=== PATIENT | male | born 1950 | race Asian ===

== ENCOUNTER 2022-01-12 17:43 | Emergency (ER) | payer MEDICARE, OTHER ==
[~2022-01-12] VITALS: Ht 160 cm; Wt 59.0 kg
[~2022-01-12 17:43] MED LIST: ALLO-45 PO; AMLO-257 PO; HYDR10TA31 PO; HYDR25TA2 PO; LISI-894 PO
[2022-01-12] MEDS ORDERED: METO-558 PO (17:53)
[2022-01-12] MEDS ORDERED: CHL25 PO (17:53)
[2022-01-12] MEDS ORDERED: CLON0.1T2 PO (17:53)
[2022-01-12] MEDS ORDERED: DiphenhydrAMINE HCL 25 MG CAPSULE PO ONE (19:00)
[2022-01-12] MEDS ORDERED: NAPROXEN 250 MG TABLET PO ONE (20:30)
[2022-01-12] MEDS ORDERED: HYDR30CR39 TP (20:56)
[2022-01-12] MEDS ORDERED: IBUP-2338 PO (20:56)
[2022-01-12 21:28] VITALS: BP 148/66
== END 2022-01-12 21:31 | disposition home or self-care (01) ==
LOC: EMS 17:46
DX: I82.403 Acute embolism and thrombosis of unspecified deep veins of lower extremity, bilateral (principal); M25.461 Effusion, right knee; M25.462 Effusion, left knee; I10 Essential (primary) hypertension; F17.210 Nicotine dependence, cigarettes, uncomplicated; Z79.899 Other long term (current) drug therapy
CPT/HCPCS: 85379; 93970; 99285

== ENCOUNTER 2022-06-09 09:59 | Inpatient (IN) | payer MEDICARE, OTHER ==
[~2022-06-09] VITALS: Ht 162.6 cm; Wt 65.5 kg
[~2022-06-09 09:59] MED LIST changes: -AMLO-257 PO; +CHL25 PO; +CLON0.1T2 PO; -HYDR10TA31 PO; -HYDR25TA2 PO; +HYDR30CR39 TP; +IBUP-2338 PO; -LISI-894 PO; +METO-558 PO
[2022-06-09 10:24] LABS: COVID AG,FIA SOURCE NASOPHARYNGEAL
[2022-06-09 10:26] LABS: BASOPHILS % (AUTO) 1.1 % (0.0-2.0); EOSINOPHILS % (AUTO) 1.6 % (1.0-6.0); HEMATOCRIT 35.9 % (41-53); HEMOGLOBIN 11.4 g/dL (13.5-17.5); LYMPHOCYTES # (AUTO) 1.6 K/uL (1.0-4.8); LYMPHOCYTES % (AUTO) 24.2 % (22.0-44.0); MEAN CORPUSCULAR HEMOGLOBIN 24.8 pg (26.0-34.0); MEAN CORPUSCULAR HGB CONC 31.9 G/dL (31.0-37.0); MEAN CORPUSCULAR VOLUME 78 fL (80-100); MONOCYTES # (AUTO) 0.6 K/uL (0.1-1.0); MONOCYTES % (AUTO) 8.9 % (2.0-9.0); NEUTROPHILS # (AUTO) 4.1 K/uL (1.8-7.7); NEUTROPHILS % (AUTO) 64.2 % (40.0-70.0); PLATELET COUNT (AUTO) 289 K/uL (150-450); RED BLOOD CELL COUNT(AUTO) 4.62 MIL/uL (4.50-5.90); RED CELL DISTRIBUTION WIDTH 15.3 % (11.5-14.5)
[2022-06-09 10:36] LABS: CALCIUM, TOTAL 8.9 mg/dL (8.8-10.5); CREATININE 1.74 mg/dL (0.60-1.30); POTASSIUM 4.4 mmol/L (3.5-5.1)
[2022-06-09 10:42] LABS: ALBUMIN 3.1 g/dL (3.4-5.0); BILIRUBIN,TOTAL 0.4 mg/dL (0.1-1.0); TOTAL PROTEIN, SERUM 7.2 g/dL (6.4-8.2)
[2022-06-09 10:49] LABS: INFLUENZA TYPE A NEGATIVE FOR TYPE A (NEGATIVE); INFLUENZA TYPE B NEGATIVE FOR TYPE B (NEGATIVE)
[2022-06-09] MEDS ORDERED: FUROSEMIDE 40 MG/4 ML VIAL IVP ONE (11:00)
[2022-06-09] MEDS ORDERED: ASPIRIN 325 MG TABLET PO ONE (11:00)
[2022-06-09] MEDS ORDERED: ACETAMINOPHEN 325 MG TABLET PO PRN (12:15)
[2022-06-09] MEDS ORDERED: ONDANSETRON HCL 4 MG/2 ML VIAL IVP PRN (12:15)
[2022-06-09] MEDS: CloNIDine HCL 0.1 MG TABLET PO PRN ×2 (13:22→21:03)
[2022-06-09 15:49] VITALS: BP 160/103
[2022-06-09] MEDS: HEPARIN SODIUM,PORCINE 5,000 UNITS/ML VIAL SQ SCH ×2 (18:42→23:44)
[2022-06-09] MEDS: NICOTINE 21 MG/24 HOUR PATCH TD SCH (18:44)
[2022-06-09 19:27] VITALS: BP 163/106
[2022-06-09 20:57] LABS: GLUCOMETER DEV NAME(LOC) 5S.2B; GLUCOSE,POINT OF CARE 102 MG/DL (70-110)
[2022-06-09] MEDS ORDERED: METOPROLOL TARTRATE 25 MG TABLET PO SCH (21:00)
[2022-06-09] MEDS: LOSARTAN POTASSIUM 25 MG TABLET PO SCH (21:02)
[2022-06-09] MEDS: DOCUSATE SODIUM 100 MG CAPSULE PO SCH (21:02)
[2022-06-10 00:27] VITALS: BP 156/100
[2022-06-10 04:18] VITALS: BP 161/98
[2022-06-10 07:12] LABS: CALCIUM, TOTAL 9.2 mg/dL (8.8-10.5); CREATININE 1.89 mg/dL (0.60-1.30); POTASSIUM 4.3 mmol/L (3.5-5.1)
[2022-06-10] MEDS: HEPARIN SODIUM,PORCINE 5,000 UNITS/ML VIAL SQ SCH ×3 (08:00→23:37)
[2022-06-10] MEDS: NICOTINE 21 MG/24 HOUR PATCH TD SCH (10:05)
[2022-06-10] MEDS: LOSARTAN POTASSIUM 25 MG TABLET PO SCH ×2 (10:06→20:41)
[2022-06-10] MEDS: ASPIRIN 81 MG CHEWABLE TABLET PO SCH (10:06)
[2022-06-10] MEDS: METOPROLOL SUCCINATE 25 MG ER TABLET PO SCH (10:06)
[2022-06-10] MEDS: DOCUSATE SODIUM 100 MG CAPSULE PO SCH ×2 (10:06→20:41)
[2022-06-10] MEDS: FAMOTIDINE 20 MG TABLET PO SCH (10:06)
[2022-06-10] MEDS: FUROSEMIDE 20 MG/2 ML VIAL IVP SCH (10:07)
[2022-06-10] MEDS: HydrALAZINE HCL 25 MG TABLET PO SCH ×2 (18:31→23:37)
[2022-06-10] MEDS: ISOSORBIDE DINITRATE 10 MG TABLET PO SCH ×2 (18:31→20:41)
[2022-06-10 19:32] VITALS: BP 168/107
[2022-06-10] MEDS: CloNIDine HCL 0.1 MG TABLET PO PRN (20:42)
[2022-06-11 00:26] VITALS: BP 155/94
[2022-06-11 04:42] VITALS: BP 160/95
[2022-06-11] MEDS: CloNIDine HCL 0.1 MG TABLET PO PRN (05:38)
[2022-06-11 06:55] LABS: CALCIUM, TOTAL 9.2 mg/dL (8.8-10.5); CREATININE 1.89 mg/dL (0.60-1.30); POTASSIUM 3.7 mmol/L (3.5-5.1)
[2022-06-11 07:40] VITALS: BP 160/96
[2022-06-11] MEDS: FUROSEMIDE 20 MG/2 ML VIAL IVP SCH (10:29)
[2022-06-11] MEDS: ASPIRIN 81 MG CHEWABLE TABLET PO SCH (10:30)
[2022-06-11] MEDS: FAMOTIDINE 20 MG TABLET PO SCH (10:30)
[2022-06-11] MEDS: HydrALAZINE HCL 25 MG TABLET PO SCH (10:30)
[2022-06-11] MEDS: ISOSORBIDE DINITRATE 10 MG TABLET PO SCH (10:30)
[2022-06-11] MEDS: METOPROLOL SUCCINATE 25 MG ER TABLET PO SCH (10:30)
[2022-06-11] MEDS: LOSARTAN POTASSIUM 25 MG TABLET PO SCH (10:30)
[2022-06-11] MEDS: HEPARIN SODIUM,PORCINE 5,000 UNITS/ML VIAL SQ SCH (10:30)
[2022-06-11] MEDS: DOCUSATE SODIUM 100 MG CAPSULE PO SCH (10:30)
[2022-06-11] MEDS: NICOTINE 21 MG/24 HOUR PATCH TD SCH (10:31)
[2022-06-11 12:30] VITALS: BP 153/101
[2022-06-11] MEDS ORDERED: METO25 PO (14:39)
[2022-06-11] MEDS ORDERED: LOSA-381 PO (14:40)
[2022-06-11] MEDS ORDERED: FURO20 PO (14:40)
[2022-06-11] MEDS ORDERED: ASPI81TA87 PO (14:41)
[2022-06-12] MEDS ORDERED: FUROSEMIDE 20 MG TABLET PO SCH (09:00)
[2022-06-12] MEDS ORDERED: METOPROLOL SUCCINATE 50 MG ER TABLET PO SCH (09:00)
== END 2022-06-11 16:00 | disposition home or self-care (01) | DRG 291 ==
LOC: EMS 10:01 → 5S 12:17
PROVIDERS: ADMIT Internal Medicine; ATTEND Internal Medicine
DX: I13.0 Hypertensive heart and chronic kidney disease with heart failure and stage 1 through stage 4 chronic kidney disease, or unspecified chronic kidney disease (principal); I50.23 Acute on chronic systolic (congestive) heart failure; N17.9 Acute kidney failure, unspecified; I42.9 Cardiomyopathy, unspecified; F17.210 Nicotine dependence, cigarettes, uncomplicated; N18.30 Chronic kidney disease, stage 3 unspecified; M10.9 Gout, unspecified; Z20.822 Contact with and (suspected) exposure to COVID-19; J44.9 Chronic obstructive pulmonary disease, unspecified; Z82.49 Family history of ischemic heart disease and other diseases of the circulatory system; Z90.49 Acquired absence of other specified parts of digestive tract
CPT/HCPCS: 71045; 76770; 80048; 80053; 80061; 82962; 83036; 83880; 84484; 85025; 87804; 93005; 93306; 99285; J1644; J1940; 36415-L1; 36415-TC

== ENCOUNTER 2022-08-19 06:46 | Inpatient (IN) | payer MEDICARE, OTHER ==
[~2022-08-19] VITALS: Ht 167.6 cm; Wt 54.6 kg
[2022-08-19] VITALS (12 sets, daily range): BP systolic 104–170; BP diastolic 55–110
[~2022-08-19 06:46] MED LIST changes: -ALLO-45 PO; +ASPI81TA87 PO; -CHL25 PO; -CLON0.1T2 PO; +FURO20 PO; -HYDR30CR39 TP; -IBUP-2338 PO; +LOSA-381 PO; -METO-558 PO; +METO25 PO
[2022-08-19 07:46] LABS: CREATININE 2.52 mg/dL (0.60-1.30); MEAN CORPUSCULAR HEMOGLOBIN 25.2 pg (26.0-34.0); MEAN CORPUSCULAR HGB CONC 30.1 G/dL (31.0-37.0); MEAN CORPUSCULAR VOLUME 84 fL (80-100); PLATELET COUNT (AUTO) 281 K/uL (150-450); POTASSIUM 4.2 mmol/L (3.5-5.1); RED BLOOD CELL COUNT(AUTO) 1.38 MIL/uL (4.50-5.90); RED CELL DISTRIBUTION WIDTH 20.5 % (11.5-14.5)
[2022-08-19 07:50] LABS: COVID AG,FIA SOURCE NASOPHARYNGEAL
[2022-08-19 07:51] LABS: HEMATOCRIT 11.5 % (41-53); HEMOGLOBIN 3.5 g/dL (13.5-17.5)
[2022-08-19 07:59] LABS: B-TYPE NATRIURETIC PEPTIDE 20 pg/mL (0-100)
[2022-08-19] MEDS ORDERED: PANTOPRAZOLE SODIUM 80 MG in SODIUM CHLORIDE 0.9% 100 ML IV SCH ×2 (08:00→15:00)
[2022-08-19] MEDS ORDERED: PANTOPRAZOLE SODIUM 40 MG/VIAL IVP ONE (08:00)
[2022-08-19 08:06] LABS: PROTHROMBIN TIME 10.9 SEC (9.4-11.6)
[2022-08-19 08:10] LABS: ALBUMIN 2.6 g/dL (3.4-5.0); BILIRUBIN,TOTAL 0.2 mg/dL (0.1-1.0); MAGNESIUM 1.8 mg/dL (1.80-2.40); PHOSPHORUS 3.8 mg/dL (2.5-4.9); TOTAL PROTEIN, SERUM 5.4 g/dL (6.4-8.2)
[2022-08-19 08:23] LABS: AMMONIA 12 umol/L (11-32)
[2022-08-19 08:25] LABS: LACTIC ACID 8.9 mmol/L (0.4-2.0)
[2022-08-19] MEDS ORDERED: SODIUM CHLORIDE 0.9% 1,000 ML IV ONE (08:30)
[2022-08-19 09:07] LABS: BAND NEUTROPHILS % (MANUAL) 3 % (0-5); LYMPHOCYTES % (MANUAL) 11 % (22-44); MONOCYTES % (MANUAL) 5 % (2-9); SEGMENTED NEUTROPHILS % 81 % (40-70)
[2022-08-19] MEDS ORDERED: ONDANSETRON HCL 4 MG/2 ML VIAL IVP PRN ×2 (09:15→11:30)
[2022-08-19] MEDS ORDERED: ACETAMINOPHEN 325 MG TABLET PO PRN ×2 (09:15→11:30)
[2022-08-19] MEDS ORDERED: 0.9% SODIUM CHLORIDE 10 ML SYRINGE IVP PRN (09:15)
[2022-08-19] MEDS ORDERED: BISACODYL 10 MG RECTAL RECTAL SUPPOSITORY PR PRN (11:30)
[2022-08-19] MEDS ORDERED: ZOLPIDEM TARTRATE 5 MG TABLET PO PRN (11:30)
[2022-08-19] MEDS ORDERED: MAGNESIUM HYDROXIDE SUSPENSION 30 ML UDCUP PO PRN (11:30)
[2022-08-19] MEDS ORDERED: FUROSEMIDE 20 MG/2 ML VIAL IVP ONE (12:00)
[2022-08-19 12:26] LABS: APPEARANCE,URINE HAZY (CLEAR); BILIRUBIN,URINE NEGATIVE (NEGATIVE); GLUCOSE, URINE (UA) NEGATIVE (NEGATIVE); KETONES,URINE NEGATIVE (NEGATIVE); LEUKOCYTE ESTERASE ,URINE TRACE (NEGATIVE); NITRATE,URINE NEGATIVE (NEGATIVE); OCCULT BLOOD,URINE TRACE (NEGATIVE); PROTEIN,URINE NEGATIVE (NEGATIVE); SPECIFIC GRAVITIY, URINE 1.013 (1.003-1.030); UROBILINOGEN,URINE <=1.0 mg/dL (<=1.0)
[2022-08-19 12:36] LABS: BACTERIA,URINE None Seen /HPF (None Seen); RBC,URINE 0-2 /HPF (0-2); WBC,URINE 0-2 /HPF (0-5)
[2022-08-19 13:33] LABS: HEMATOCRIT 21.3 % (41-53)
[2022-08-19 13:44] LABS: HEMOGLOBIN 6.9 g/dL (13.5-17.5)
[2022-08-19] MEDS: CARVEDILOL 3.125 MG TABLET PO SCH ×2 (16:20→19:56)
[2022-08-19] MEDS: HydrALAZINE HCL 20 MG/ML VIAL IVP PRN (16:49)
[2022-08-19 18:05] LABS: HEMATOCRIT 22.4 % (41-53); HEMOGLOBIN 7.4 g/dL (13.5-17.5)
[2022-08-19] MEDS: DOCUSATE SODIUM 100 MG CAPSULE PO SCH (19:55)
[2022-08-19] MEDS: MORPHINE SULFATE 2 MG/ML SYRINGE IVP PRN (19:56)
[2022-08-19] MEDS: PANTOPRAZOLE SODIUM 40 MG/VIAL IVP SCH (19:56)
[2022-08-20] VITALS (13 sets, daily range): BP systolic 122–150; BP diastolic 63–79
[2022-08-20 05:35] LABS: HEMATOCRIT 21.5 % (41-53); HEMOGLOBIN 7.1 g/dL (13.5-17.5); MEAN CORPUSCULAR HEMOGLOBIN 27.5 pg (26.0-34.0); MEAN CORPUSCULAR HGB CONC 32.8 G/dL (31.0-37.0); MEAN CORPUSCULAR VOLUME 84 fL (80-100); PLATELET COUNT (AUTO) 225 K/uL (150-450); RED BLOOD CELL COUNT(AUTO) 2.57 MIL/uL (4.50-5.90); RED CELL DISTRIBUTION WIDTH 19.3 % (11.5-14.5)
[2022-08-20 05:39] LABS: BAND NEUTROPHILS % (MANUAL) 0 % (0-5)
[2022-08-20 05:41] LABS: ALBUMIN 2.7 g/dL (3.4-5.0); BILIRUBIN,TOTAL 0.3 mg/dL (0.1-1.0); CALCIUM, TOTAL 8.2 mg/dL (8.8-10.5); CREATININE 2.85 mg/dL (0.60-1.30); POTASSIUM 4.8 mmol/L (3.5-5.1); TOTAL PROTEIN, SERUM 5.2 g/dL (6.4-8.2)
[2022-08-20 05:42] LABS: HEMOGLOBIN A1C 6.1 % (3.8-5.6)
[2022-08-20 05:54] LABS: LYMPHOCYTES % (MANUAL) 14 % (22-44); MONOCYTES % (MANUAL) 3 % (2-9); SEGMENTED NEUTROPHILS % 83 % (40-70)
[2022-08-20] MEDS: CARVEDILOL 3.125 MG TABLET PO SCH ×2 (08:00→20:03)
[2022-08-20] MEDS: PANTOPRAZOLE SODIUM 40 MG/VIAL IVP SCH (08:00)
[2022-08-20] MEDS: DOCUSATE SODIUM 100 MG CAPSULE PO SCH ×2 (08:00→20:03)
[2022-08-20] MEDS ORDERED: FUROSEMIDE 20 MG/2 ML VIAL IVP ONE ×2 (09:00→23:30)
[2022-08-20] MEDS: ALBUMIN HUMAN 25%-25GM/100ML 100 ML IV SCH ×2 (09:05→19:57)
[2022-08-20 09:37] LABS: CREATININE,URINE RANDOM 42.9 mg/dL (30.0-125.0)
[2022-08-20 14:49] LABS: HEMATOCRIT 19.1 % (41-53); HEMOGLOBIN 6.3 g/dL (13.5-17.5)
[2022-08-20] MEDS ORDERED: SODIUM CHLORIDE 0.9% 1,000 ML ONE (15:34)
[2022-08-20] MEDS: PANTOPRAZOLE SODIUM 80 MG in SODIUM CHLORIDE 0.9% 100 ML IV SCH (17:37)
[2022-08-20 22:49] LABS: HEMATOCRIT 20.5 % (41-53); HEMOGLOBIN 6.8 g/dL (13.5-17.5)
[2022-08-21] VITALS (14 sets, daily range): BP systolic 132–184; BP diastolic 66–89
[2022-08-21] MEDS ORDERED: SODIUM CHLORIDE 0.9% 250 ML IV ONE (00:21)
[2022-08-21] MEDS: PANTOPRAZOLE SODIUM 80 MG in SODIUM CHLORIDE 0.9% 100 ML IV SCH ×3 (03:18→22:50)
[2022-08-21 06:57] LABS: HEMOGLOBIN 8.7 g/dL (13.5-17.5)
[2022-08-21 07:16] LABS: CALCIUM, TOTAL 8.9 mg/dL (8.8-10.5); CREATININE 2.22 mg/dL (0.60-1.30); POTASSIUM 3.6 mmol/L (3.5-5.1)
[2022-08-21] MEDS: ALBUMIN HUMAN 25%-25GM/100ML 100 ML IV SCH (08:39)
[2022-08-21] MEDS: CARVEDILOL 3.125 MG TABLET PO SCH ×2 (08:40→19:57)
[2022-08-21] MEDS: DOCUSATE SODIUM 100 MG CAPSULE PO SCH ×2 (08:40→19:57)
[2022-08-21] MEDS: HydrALAZINE HCL 20 MG/ML VIAL IVP PRN (19:57)
[2022-08-21] MEDS: MORPHINE SULFATE 2 MG/ML SYRINGE IVP PRN (20:08)
[2022-08-22 00:18] VITALS: BP 136/70
[2022-08-22 04:48] VITALS: BP 154/84
[2022-08-22] MEDS: HYDROCODONE/ACETAMINOPHEN 5-325 MG TABLET PO PRN ×2 (05:28→13:44)
[2022-08-22 07:39] LABS: CALCIUM, TOTAL 9.1 mg/dL (8.8-10.5); CREATININE 1.97 mg/dL (0.60-1.30); MAGNESIUM 1.9 mg/dL (1.80-2.40); PHOSPHORUS 3.4 mg/dL (2.5-4.9); POTASSIUM 4.3 mmol/L (3.5-5.1)
[2022-08-22] MEDS: PANTOPRAZOLE SODIUM 80 MG in SODIUM CHLORIDE 0.9% 100 ML IV SCH (08:16)
[2022-08-22] MEDS: CARVEDILOL 3.125 MG TABLET PO SCH (08:16)
[2022-08-22] MEDS: DOCUSATE SODIUM 100 MG CAPSULE PO SCH (08:16)
[2022-08-22 08:42] VITALS: BP 140/58
[2022-08-22] MEDS ORDERED: PANTOPRAZOLE SODIUM 40 MG/VIAL IVP SCH (09:15)
[2022-08-22 09:50] LABS: HEMATOCRIT 29.2 % (41-53); HEMOGLOBIN 9.7 g/dL (13.5-17.5); MEAN CORPUSCULAR HEMOGLOBIN 29.5 pg (26.0-34.0); MEAN CORPUSCULAR HGB CONC 33.3 G/dL (31.0-37.0); MEAN CORPUSCULAR VOLUME 89 fL (80-100); PLATELET COUNT (AUTO) 230 K/uL (150-450); RED BLOOD CELL COUNT(AUTO) 3.29 MIL/uL (4.50-5.90); RED CELL DISTRIBUTION WIDTH 20.7 % (11.5-14.5)
[2022-08-22 10:22] LABS: BAND NEUTROPHILS % (MANUAL) 1 % (0-5); CORRECTED WHITE BLOOD COUNT 11.1 K/uL (4.5-11.0); LYMPHOCYTES % (MANUAL) 13 % (22-44); MONOCYTES % (MANUAL) 8 % (2-9); SEGMENTED NEUTROPHILS % 78 % (40-70)
[2022-08-22 11:27] VITALS: BP 140/77
[2022-08-22] MEDS ORDERED: PANT-31 PO (11:55)
[2022-08-22] MEDS ORDERED: FERR325T27 PO (11:55)
[2022-08-22 16:32] VITALS: BP 146/80
[2022-08-22] MEDS ORDERED: FERROUS SULFATE 325 MG EC TABLET PO SCH (18:00)
[2022-08-23] MEDS ORDERED: EPOETIN ALFA 10,000 UNITS/ML VIAL SQ SCH (09:00)
[2022-08-24 05:06] LABS: ALBUMIN URINE (ELP) 60.5 %
== END 2022-08-22 18:50 | disposition home or self-care (01) | DRG 377 ==
LOC: EMS 06:47 → ICU 09:06 → 5S 08-20 12:42
PROVIDERS: ADMIT Hospitalist; ATTEND Hospitalist
PROC: 0DB78ZX Excision of Stomach, Pylorus, Via Natural or Artificial Opening Endoscopic, Diagnostic (ICD-10-PCS; 2022-08-19)
PROC: 30233N1 Transfusion of Nonautologous Red Blood Cells into Peripheral Vein, Percutaneous Approach (ICD-10-PCS; 2022-08-19)
PROC: 0DB98ZX Excision of Duodenum, Via Natural or Artificial Opening Endoscopic, Diagnostic (ICD-10-PCS; principal; 2022-08-19 14:00)
DX: K25.0 Acute gastric ulcer with hemorrhage (principal); E43 Unspecified severe protein-calorie malnutrition; G93.41 Metabolic encephalopathy; I50.23 Acute on chronic systolic (congestive) heart failure; R57.8 Other shock; R65.11 Systemic inflammatory response syndrome (SIRS) of non-infectious origin with acute organ dysfunction; K20.91 Esophagitis, unspecified with bleeding; N17.9 Acute kidney failure, unspecified; I13.0 Hypertensive heart and chronic kidney disease with heart failure and stage 1 through stage 4 chronic kidney disease, or unspecified chronic kidney disease; E87.20 Acidosis, unspecified; I42.9 Cardiomyopathy, unspecified; Z68.1 Body mass index [BMI] 19.9 or less, adult; Z20.822 Contact with and (suspected) exposure to COVID-19; T39.395A Adverse effect of other nonsteroidal anti-inflammatory drugs [NSAID], initial encounter; N18.30 Chronic kidney disease, stage 3 unspecified; D64.9 Anemia, unspecified; M10.9 Gout, unspecified; F17.210 Nicotine dependence, cigarettes, uncomplicated; I08.0 Rheumatic disorders of both mitral and aortic valves; Z90.49 Acquired absence of other specified parts of digestive tract
CPT/HCPCS: 70450; 71045; 72125; 76770; 80048; 80053; 81001; 82140; 82271; 82550; 82570; 83036; 83605; 83735; 83880; 84100; 84156; 84166; 84300; 84484; 84540; 85014; 85018; 85025; 85610; 85730; 86850; 86900; 86901; 86923; 87040; 87081; 93005; 97162; 99285; C9113; G0378; J0360; J0885; J1940; J2270; J7030; J7050; P9016; P9046; 36415-L1; 36415-TC